=== PATIENT | female | born 1975 | race Caucasian/White ===

== ENCOUNTER 2017-01-24 09:02 | Emergency (ER) | payer OTHER ==
[2017-01-24 09:18] VITALS: BP 119/67
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
== END 2017-01-24 10:12 | disposition home or self-care (01) ==
LOC: ER 09:02
DX: F41.9 Anxiety disorder, unspecified (principal); F32.9 Major depressive disorder, single episode, unspecified